=== PATIENT | female | born 1970 | race Caucasian/White ===

== ENCOUNTER → 2017-05-16 | Outpatient (REF) ==
[~2017-05-16] MED LIST: ALBUTEROL0.83 MG/ML IH; AMOXICILLIN 50500 MG PO; BP PILL; CLINDAMYCIN HC150 MG PO; DOXYCYCLINE 10100 MG PO; FLEXERIL 1010 MG/TAB PO; GLUCOPHAGE500 MG/TAB PO; LORTAB 5/500 501 TAB PO; LORTAB 7.5/5001 TAB PO; NO HOME MEDICATIONS; NORCO 325 MG-7.1 TAB PO; PENICILLIN V500 MG PO; PHENERGAN 25 TA25 MG PO; PROAIR HFA0.09 MG/AC IH; ULTRAM 50MG TAB50 MG PO; WATER PILL
== END ==
LOC: ZLAB.WCH 11:43
DX: Z01.89 Encounter for other specified special examinations (principal)

== ENCOUNTER 2019-07-07 18:35 | Inpatient (IN) | payer SELFPAY ==
[~2019-07-07] VITALS: Ht 154.9 cm; Wt 137.2 kg
[2019-07-07 20:06] VITALS: BP 134/85; PULSE 104
[2019-07-07] MEDS ORDERED: PRINZIDE 12.5 M1 TAB PO (20:14)
[2019-07-07] MEDS ORDERED: ZOCOR5 MG PO (20:16)
[2019-07-07] MEDS ORDERED: LANTUS SOLOS100 U/ML SQ ×2 (20:21→20:22)
[2019-07-07] MEDS ORDERED: HUMALOG PEN100 U/ML SQ (20:21)
[2019-07-08 00:04] LABS: TRICYCLIC ANTIDEPRESS URINE NEGATIVE
[2019-07-08 04:48] VITALS: BP 136/80; PULSE 100; TEMP 98.1
--- NOTE | 2019-07-08 05:09 | NUR ---
Patient admitted to the unit by Dr. Diego. Escorted by EMS, patient stand-pivots to the bed. Wears 2L oxygen. 5 page completed, along with med rec, allergy list, covid screen, and infectious disease screen. Patient swabbed for MRSA and RVP via nares per orders. Vitals stable. Urine collected and sent to lab. Patient's blood glucose noted to be 338. Insulin given per orders. Patient given sandwich box. Fluids administered to IV in RAC. Patient alert and oriented. Cough noted, in which patient states she is coughing up white sputum. Unable to visualize. Patient noted to have significant shortness of breathe when ambulating to the commode. Oxygen saturation drops to 88%. Oxygen saturation also noted to drop when patient is asleep to 86-87%. Oxygen increased to 3L via nasal cannula. Patient has slept off and on throughout the shift. Fluid intake adequate. Urine output adequate. Will continue to monitor patient.
--- NOTE | 2019-07-08 07:55 | NUR ---
Patient resting in bed at this time. Patient is alert and oriented, answers questions appropriately. BG via glucometer was 413, informed hospitalist and recieved vorb to administer 20 units of novolog. Administered per order. Patient denies further needs, call light within reach.
[2019-07-08 09:48] LABS: BASO % 0.1 % (0.0-2.0); GRAN # 8.7 (1.4-6.5); GRAN % 87.6 % (42.2-75.2); HEMATOCRIT 40.3 % (37.0-47.0); HEMOGLOBIN 13.2 g/dl (12.5-16.0); LYMPH # 0.9 (1.2-3.4); LYMPH % 8.8 % (20.0-51.0); MEAN CELL VOLUME 95 fl (80.0-100.0); MEAN CORPUSCULAR HEMOGLOBIN 31 pg (27.0-31.0); MEAN CORPUSCULAR HGB CONC 33 g/dl (33.0-37.0); MONO # 0.3 (0.1-0.6); MONO % 2.7 % (1.7-9.3); PLATELET COUNT 207 K/mm3 (130-400); RED BLOOD COUNT 4.25 M/mm3 (4.10-5.30); REDCELL DISTRIBUTION WIDTH-CV 13.6 % (11.5-14.5)
[2019-07-08 09:51] LABS: ALBUMIN 3.8 gm/dL (3.5-5.0); BILIRUBIN,TOTAL 0.6 mg/dL (0.0-1.0); CALCIUM 8.9 mg/dL (8.4-10.2); CREATININE, serum 0.71 (0.52-1.25); MAGNESIUM 1.2 mg/dL (1.6-2.3); POTASSIUM 4.4 mmol/L (3.4-5.0)
--- NOTE | 2019-07-08 11:38 | NUR ---
BG via glucometer was 453, informed hospitalist, recieved order to administer insulin per emar. Patient continues to deny pain or further needs, call light within reach.
[2019-07-08 13:48] VITALS: BP 95/47; PULSE 92; TEMP 98.1
--- NOTE | 2019-07-08 14:43 | NUR ---
Food Safety Coordinator called patient to complete initial intake as she is a PUI. SW was notified by patient's CYBER OPERATOR after intake that her test results from [place] came back negative. Patient lives in [place] with a roommate and works at [employer]. Patient receives [facility] and states she sees a provider named Priya. Patient states she either obtains medications from [place] [facility] or [facility] in [place]. Patient does not have DPOA completed but is interested in obtaining the form. SHAY provided. Patient is not and has two children, Priya (ph#[phone]) and Ezra. Patient states Ezra does not have a phone but lives with Priya. Patient has a brother See (ph#[phone]) and her mother is Alyx (ph#[phone]). Patient does not have any DME at this time but per Hospitalist, patient will likely need home oxygen upon discharge. SHAY spoke with patient about this and she advised she would not be able to afford to pay out of pocket. HSAY advised that Aster, Financial Counselor to assist with a Financial Assistance Application which would apply to [facility]. Per email from Aster, she will also assist with Medicaid/SSDI. SHAY spoke with Aster who advised she will attempt to reach patient by phone in her room. SHAY contacted patient's daughter, Priya to provide update on discharge plan. Priya denies any questions or concerns at this time. SW to continue to follow.
--- NOTE | 2019-07-08 16:15 | NUR ---
Called report to CHANELL Zhou. BG per glucometer 401, recieved vorb from hospitalist to administer insulin per emar. Patient continues to deny pain or needs, call light within reach.
[2019-07-08 16:19] VITALS: BP 95/47; PULSE 87; TEMP 98.2
[2019-07-08 17:30] VITALS: BP 117/91; PULSE 95; TEMP 97.8
--- NOTE | 2019-07-08 17:30 | NUR ---
PATIENT ARRIVED TO ROOM 343 VIA WHEELCHAIR FROM [facility]. PATIENT SETTELED INTO ROOM. PATIENT EATING DINNER TRAY. CALL LIGHT WITHIN REACH. NO OTHER NEEDS AT THIS TIME.
--- NOTE | 2019-07-08 18:15 | NUR ---
PATIENT BILATERAL UPPER ARMS RED AND WARM TO THE TOUCH. THE PATIENT STATES THAT IT FEELS ITCHY BUT IS TOLERABLE. JERRY VALLADARES CALLED AND NOTIFIED. IF WORSENS LET HOSPITALIST KNOW.
--- NOTE | 2019-07-08 19:24 | NUR ---
REPORT GIVEN TO CHANELL ECHEVARRIA.
[2019-07-08 19:29] VITALS: BP 121/48; PULSE 93; TEMP 97.7
--- NOTE | 2019-07-08 21:30 | NUR ---
Patient assessed at this time. Alert and oriented x 4, and able to make needs known. Denies having pain and discomfort at this time. Peripheral IV to right AC. Denies SOB and dyspnea. On oxygen at 3 L/min via NC. LS CTA in upper lobes. Diminished in lower lobes. Respirations even and unlabored. HRR. Capillary refill less than 3 seconds. Non-tenting skin turgor. BSAx4. Abdomen soft and non-tender. 1+ edema BUE. BUE with redness and warmth. Denies itching and discomfort. 2+ edema BLE. Voices no questions, needs, or concerns at this time. Resting in bed with call light within reach.
[2019-07-08 23:22] VITALS: BP 107/61; PULSE 85; TEMP 98.3
[2019-07-09 03:26] VITALS: BP 140/79; PULSE 100; TEMP 98.3
--- NOTE | 2019-07-09 06:10 | NUR ---
Patient has been resting in bed. Wore CPAP some tonight. Reported headache this morning. Given PRN APAP as requested. Voices no furhter questions, needs, or concerns at this time. Resting in bed with call light within reach.
[2019-07-09 07:50] LABS: CALCIUM 8.7 mg/dL (8.4-10.2); CREATININE, serum 0.76 (0.52-1.25); MAGNESIUM 2.3 mg/dL (1.6-2.3); POTASSIUM 3.7 mmol/L (3.4-5.0)
[2019-07-09 07:57] LABS: TROPONIN-I 0.023 ng/mL (0.000-0.035)
[2019-07-09 08:22] VITALS: BP 119/74; PULSE 95; TEMP 98
[2019-07-09 12:00] VITALS: BP 116/70; BP 119/32; PULSE 130; PULSE 93; TEMP 98.5; TEMP 99
[2019-07-09 16:47] VITALS: BP 109/64; PULSE 84; TEMP 98.7
--- NOTE | 2019-07-09 17:17 | NUR ---
Patient is alert and oriented. denies any pain. heart sound is normal. upper lung sound is clear, bases is diminished. 1+ upper extremity, 2+ lower extremity edema. patient ambulate with respiratory therapist fine. Occupation therapist said patient qualify to discharge home with oxygen this moment. Patient will require additional evaluation for home oxygen by respiratory therapist if discharged on/ after 07/11/19. patient is currently on 3L of O2 at rest.
[2019-07-09 19:33] VITALS: BP 122/77; PULSE 85; TEMP 97.5
--- NOTE | 2019-07-09 19:39 | NUR ---
Pt negative for COVID19. Documentation was faxed in from [facility] today.
[2019-07-09 23:28] VITALS: BP 109/46; PULSE 80; TEMP 97.9
--- NOTE | 2019-07-10 | NUR ---
Pt has slept well during the night. Pt has not called out. Pt did wake up during vitals being checked. Pt stated to me that she has had a hard time sleeping the last couple of days. Pt has slept well during the night and has her call light within reach.
[2019-07-10 03:32] VITALS: BP 132/70; PULSE 81; TEMP 97.7
--- NOTE | 2019-07-10 04:44 | NUR ---
Received report from CHANELL Quesada. Pt is currently sitting up in her chair at this time. Pt has her call light within reach.
--- NOTE | 2019-07-10 04:49 | NUR ---
Pt currently sleeing in bed. Pt did wake up when aide did vitals but she is sleeping now. Her call light is with reach and her bed is in lowest position .
--- NOTE | 2019-07-10 05:42 | NUR ---
Pt called requested something for pain. Tylenol was givne at this time. She stated that she had a very bad headache. She rated her pain at a 7 out of 10. She will call out if this doesn't seem to work. She has her call light within reach.
--- NOTE | 2019-07-10 07:00 | NUR ---
Pt is sitting in bed upon bedside report. Pt has c/o minor headache, night RN gave tylenol for this headache. Pt has no other complaints at this time. Call light within reach, no further conerns.
--- NOTE | 2019-07-10 07:23 | NUR ---
Reported off to CHANELL Iverson. Pt currently sitting up in bed getting ready for breakfast. Pt stated that her headache is better than it was before taking pain medication. Pt has her call light within reach and her bed is in lowest position.
[2019-07-10 07:25] LABS: BASO % 0.2 % (0.0-2.0); EOS # 0.1 (0.0-0.7); EOS % 0.6 % (0-4.0); GRAN # 5.6 (1.4-6.5); GRAN % 60.2 % (42.2-75.2); HEMATOCRIT 41.9 % (37.0-47.0); HEMOGLOBIN 13.3 g/dl (12.5-16.0); LYMPH # 2.6 (1.2-3.4); LYMPH % 28.4 % (20.0-51.0); MEAN CELL VOLUME 97 fl (80.0-100.0); MEAN CORPUSCULAR HEMOGLOBIN 31 pg (27.0-31.0); MEAN CORPUSCULAR HGB CONC 32 g/dl (33.0-37.0); MEAN PLATELET VOLUME 11.2 fl (7.4-10.4); MONO % 10.2 % (1.7-9.3); PLATELET COUNT 215 K/mm3 (130-400); RED BLOOD COUNT 4.32 M/mm3 (4.10-5.30); REDCELL DISTRIBUTION WIDTH-CV 13.7 % (11.5-14.5)
[2019-07-10 07:29] LABS: CALCIUM 8.6 mg/dL (8.4-10.2); CREATININE, serum 0.73 (0.52-1.25); POTASSIUM 3.8 mmol/L (3.4-5.0)
[2019-07-10 07:40] VITALS: BP 123/71; PULSE 84; TEMP 98.1
[2019-07-10 11:17] VITALS: BP 121/63; PULSE 70; TEMP 98.1
[2019-07-10 15:06] VITALS: BP 148/75; PULSE 85; TEMP 98.2
--- NOTE | 2019-07-10 19:37 | NUR ---
Report given to Irena LUA.
[2019-07-10 19:44] VITALS: BP 124/54; PULSE 84; TEMP 97.8
--- NOTE | 2019-07-10 20:00 | NUR ---
At time of assessment, patient is in bed watching TV. She is alert and oriented, heart sounds normal/regular. Lung sounds are clear bilateral upper lobes and lower lobes are diminished due to patient being very obese. No edema or pain is present. Redness on the patient's chest and bilateral forearms is noted, which the patient states is not normal for her. She states she first noticed this discoloration after receiving a magnesium IV solution. Patient will be NPO after midnight and has been provided a snack. Will continue to monitor.
[2019-07-11] VITALS (11 sets, daily range): BP systolic 124–146; BP diastolic 54–94; PULSE 80–103; TEMP 98.2–98.8
--- NOTE | 2019-07-11 04:52 | NUR ---
Patient has had an uneventful night and has been asleep with no complaints. Will continue to monitor.
[2019-07-11 06:12] LABS: CALCIUM 8.7 mg/dL (8.4-10.2); CREATININE, serum 0.7 (0.52-1.25); POTASSIUM 3.8 mmol/L (3.4-5.0)
[2019-07-11 06:16] LABS: BASO % 0.2 % (0.0-2.0); EOS # 0.1 (0.0-0.7); EOS % 1.3 % (0-4.0); GRAN # 5.4 (1.4-6.5); GRAN % 60.1 % (42.2-75.2); HEMATOCRIT 41.9 % (37.0-47.0); HEMOGLOBIN 13.5 g/dl (12.5-16.0); LYMPH # 2.8 (1.2-3.4); MEAN CELL VOLUME 95 fl (80.0-100.0); MEAN CORPUSCULAR HEMOGLOBIN 31 pg (27.0-31.0); MEAN CORPUSCULAR HGB CONC 32 g/dl (33.0-37.0); MEAN PLATELET VOLUME 10.9 fl (7.4-10.4); MONO # 0.6 (0.1-0.6); MONO % 6.7 % (1.7-9.3); PLATELET COUNT 210 K/mm3 (130-400); RED BLOOD COUNT 4.39 M/mm3 (4.10-5.30); REDCELL DISTRIBUTION WIDTH-CV 13.5 % (11.5-14.5)
[2019-07-11] MEDS ORDERED: LOPRESSOR 225 MG/TAB PO (10:59)
[2019-07-11] MEDS ORDERED: ASPIRIN E.C. 8181 MG PO (11:00)
[2019-07-11] MEDS ORDERED: PROTONIX 40MG T40 MG PO (11:00)
[2019-07-11] MEDS ORDERED: LANTUS100 U/ML SQ (11:01)
[2019-07-11] MEDS ORDERED: PREDNISONE20 MG PO (11:01)
--- NOTE | 2019-07-11 11:19 | NUR ---
Patient is alert and oriented. denies any pain. patient had a kailyn scan test. result is within normal limit. patient state she notice some redness on her hands after taking Mag-ox. NETWORK SECURITY ARCHITECT and Pharmacist informed of patient observation. patient will be discharging today.
--- NOTE | 2019-07-11 11:36 | NUR ---
The patient is needed oxygen at discharge. SW faxed order to [place] [facility]. The patient is self-pay and a financial assitance application was sent as well. Will continue to follow.
--- NOTE | 2019-07-11 14:46 | NUR ---
The patient discharged home today, 07/10. The patient is to pickle solution maker her oxygen at [place] [facility]. There are no additional needs at this time.
--- NOTE | 2019-07-11 14:49 | NUR ---
INT discontinued. Patient discharged with new medication order (Aspirin, Metoprolol, Prednisone, Insulin Glargine, COPD Exacerbation), discharge instruction, and future appointment (pulmonary fnx, split night sleep st). Patient was discharged with home oxygen PRN. Patient oxygen did not arrive before patient ride arrived. [employer] worker provided pt with oxygen pickup address. patient was discharged with her home medicationS Humalog pen, Lantus pen, and Zestril/Hydrodiuril. I did medication reconcilation with patient. Patient confirmed she have all the belongings she came in with.
== END 2019-07-11 14:30 | disposition home or self-care (01) | DRG 189 ==
LOC: IMCU 18:35 → EU 19:20 → SURG 07-08 17:19
PROVIDERS: Family Medicine; Physician Assistant; ADMIT Internal Medicine
DX: J96.01 Acute respiratory failure with hypoxia (principal); J44.1 Chronic obstructive pulmonary disease with (acute) exacerbation; Z68.43 Body mass index [BMI] 50.0-59.9, adult; R07.89 Other chest pain; K21.9 Gastro-esophageal reflux disease without esophagitis; E11.65 Type 2 diabetes mellitus with hyperglycemia; E66.01 Morbid (severe) obesity due to excess calories; G47.33 Obstructive sleep apnea (adult) (pediatric); I10 Essential (primary) hypertension; E78.5 Hyperlipidemia, unspecified; F32.9 Major depressive disorder, single episode, unspecified; F17.210 Nicotine dependence, cigarettes, uncomplicated; Z20.828 Contact with and (suspected) exposure to other viral communicable diseases; G43.909 Migraine, unspecified, not intractable, without status migrainosus; Z79.82 Long term (current) use of aspirin; Z98.51 Tubal ligation status; Z87.442 Personal history of urinary calculi; Z79.4 Long term (current) use of insulin
CPT/HCPCS: 99222-AI; 99232-AI; 99239; A9500; J1644; J1650; J1815; J3475; J7030; J7512

== ENCOUNTER → 2019-08-12 | Outpatient (CLI) | payer SELFPAY ==
[~2019-08-12] MED LIST changes: +ASPIRIN E.C. 8181 MG PO; +HUMALOG PEN100 U/ML SQ; +LANTUS SOLOS100 U/ML SQ; +LANTUS100 U/ML SQ; +LOPRESSOR 225 MG/TAB PO; +PREDNISONE20 MG PO; +PRINZIDE 12.5 M1 TAB PO; +PROTONIX 40MG T40 MG PO; +ZOCOR5 MG PO
== END ==
LOC: COL.PUL 11:14
DX: J44.1 Chronic obstructive pulmonary disease with (acute) exacerbation (principal); F17.210 Nicotine dependence, cigarettes, uncomplicated